=== PATIENT | male | born 1995 | race African-American/Black ===

== ENCOUNTER 2018-08-06 09:56 | Emergency (ER) | payer OTHER ==
[2018-08-06 10:33] VITALS: BP 157/65
--- NOTE | 2018-08-06 12:12 | ED Physician Documentation ---
PD HPI LOWER EXT INJURY - Stated complaint Stated Complaint: L LEG INJ - Chief complaint Chief Complaint: Ext Problem - History obtained from History obtained from: Patient - History of Present Illness PD HPI LOW EXT INJURY LOCATION: Left ([place] a pull while sprinting in the hamstring the other day. He has mild pain with walking but none at rest. No other injuries.) Review of Systems Constitutional: denies: Fever, Chills Cardiac: reports: Reviewed and negative Respiratory: reports: Reviewed and negative GI: denies: Abdominal Pain, Nausea, Vomiting PD PAST MEDICAL HISTORY - Past Medical History Past Medical History: No - Past Surgical History Past Surgical History: No - Present Medications Home Medications: Ambulatory Orders Medication Instructions Recorded Confirmed No Known Home Medications 08/06/18 08/06/18 - Allergies Allergies/Adverse Reactions: Allergies Allergy/AdvReac Type Severity Reaction Status Date / Time No Known Drug Allergies Allergy Verified 08/06/18 10:33 - Social History Does the pt smoke?: Yes Smoking Status: Current every day smoker Does the pt drink ETOH?: Yes Does the pt have substance abuse?: No - Immunizations Immunizations are current?: Yes PD ED PE NORMAL - Vitals Vital signs reviewed: Yes - General General: Alert and oriented X 3, No acute distress - Extremities Extremities: Other (He has full range of motion of the left leg at the knee. He is mildly tender over the lateral hamstring and has mild pain with forced flexion, his gait is normal. No calf tenderness. No edema or asymmetrical swelling.) Results - Vitals Vitals: Vital Signs - 24 hr 08/06/18 10:31 Temperature 37.0 C Heart Rate 69 Respiratory 18 Rate Blood Pressure 157/65 H O2 Saturation 100 Oxygen O2 Source Room air Departure - Departure Disposition: 01 Home, Self Care Clinical Impression: Hamstring strain Qualifiers: Encounter type: initial encounter Laterality: left Qualified Code(s): S76.312A - Strain of muscle, fascia and tendon of the posterior muscle group at thigh level, left thigh, initial encounter Condition: Good Record reviewed to determine appropriate education?: Yes Instructions: ED Strain Muscle Ext Comments: Ibuprofen as needed for pain, you can continue the icy hot. Generally rest for the next few days, you can walk and bear weight but I would not run for a little bit. [place]. Your blood pressure was elevated today on check into the emergency department. This does not mean that you have hypertension, it is a common phenomenon to come to the emergency department and have elevated blood pressure. I recommend that you see your primary care physician within the week to have it rechecked when y ou are feeling better.
== END 2018-08-06 12:15 | disposition home or self-care (01) ==
LOC: ED 09:56
DX: S76.312A Strain of muscle, fascia and tendon of the posterior muscle group at thigh level, left thigh, initial encounter (principal); X50.9XXA Other and unspecified overexertion or strenuous movements or postures, initial encounter; Y93.02 Activity, running; R03.0 Elevated blood-pressure reading, without diagnosis of hypertension; F17.200 Nicotine dependence, unspecified, uncomplicated
CPT/HCPCS: 99282

== ENCOUNTER 2018-12-20 20:13 | Emergency (ER) | payer OTHER ==
[2018-12-20] MEDS ORDERED: ONDANSETRON ODT 4 MG TABLET TL STA (20:46)
[2018-12-20] MEDS ORDERED: IBUPROFEN 800 MG TABLET PO STA (20:55)
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
[2018-12-20 21:06] VITALS: BP 121/68
== END 2018-12-20 21:08 | disposition home or self-care (01) ==
LOC: ED 20:13
DX: R51 Headache (principal); R11.0 Nausea; Z77.098 Contact with and (suspected) exposure to other hazardous, chiefly nonmedicinal, chemicals; Z57.5 Occupational exposure to toxic agents in other industries; F17.200 Nicotine dependence, unspecified, uncomplicated
CPT/HCPCS: 99282; 99283; A9270; Q0162